=== PATIENT | female | born 1980 | race Caucasian/White ===

== ENCOUNTER 2017-03-31 09:35 | Inpatient (IN) | payer OTHER ==
[2017-03-31] MEDS ORDERED: DEXTROSE 5%-LACTATED RINGERS 1,000 ML IV SCH ×2 (09:45→15:15)
[2017-03-31 11:04] VITALS: BMI 42.0
[2017-03-31 12:17] LABS: BASOPHIL 0.4 % (0-2.0); EOSINOPHIL 1.2 % (0-4.5); MCH 28.4 pg (25.7-33.7); MCHC 33.4 g/dl (32.0-36.0); MEAN CELL VOLUME 84.9 fl (80-96); MEAN PLT VOLUME 9.2 fl (7.5-11.1); NEUTROPHILS 71.3 % (42.8-82.8); PLATELET COUNT 182 K/MM3 (134-434); WHITE BLOOD COUNT 8.6 K/mm3 (4.0-10.0)
[2017-03-31 12:35] LABS: CALCIUM 8.5 mg/dL (8.5-10.1); COCKROFT - GAULT 163.183; CREATININE 0.8 mg/dL (0.55-1.02)
[2017-03-31 12:36] LABS: INR 0.96 (0.82-1.09); PROTHROMBIN TIME (PATIENT) 10.5 SEC (9.98-11.88)
[2017-03-31] MEDS ORDERED: DINOPROSTONE 10 MG VAGINAL SUPPOSITORY VG ONE (15:00)
--- NOTE | 2017-03-31 15:10 | HP ---
Past Medical History - Admission Chief Complaint: Suspicion of Macrosomia History of Present Illness: 36 yo @ 39 weeks gestation, with suspicion of Macrosomia admitted for induction of labor. History Source: Patient Limitations to Obtaining History: No Limitations - Past Medical History ...: 4 ...Para: 2 ...Term: 2 ...: 0 ...Spon : 1 ...Induced : 0 ...Multiple Gestation: 0 ...EDC by [facility]: 04/07/17 - Past Surgical History Past Surgical History: Yes: None Hx Myomectomy: No Hx Transabdominal Cerclage: No - Smoking History Smoking history: Never smoked Have you smoked in the past 12 months: No - Alcohol/Substance Use Hx Alcohol Use: No - Social History Usual Living Arrangement: Yes: With Spouse History of Recent Travel: No Home Medications - Allergies Allergies/Adverse Reactions: Allergies Allergy/AdvReac Type Severity Reaction Status Date / Time No Known Drug Allergies Allergy Verified 03/31/17 11:08 RED BEANS Allergy Severe Hives Uncoded 03/31/17 11:08 RED MEAT Allergy Severe Hives Uncoded 03/31/17 11:08 - Home Medications Home Medications: Ambulatory Orders Pnv with Ca,No.72/Iron/FA [ Plus Tablet] 1 each PO DAILY 03/31/17 Family Disease History - Family Disease History Family History: Unremarkable Review of Systems - Review of Systems Constitutional: reports: No Symptoms Eyes: reports: No Symptoms HENT: reports: No Symptoms Neck: reports: No Symptoms Cardiovascular: reports: No Symptoms Respiratory: reports: No Symptoms Gastrointestinal: reports: No Symptoms Genitourinary: reports: No Symptoms Breasts: reports: No Symptoms Reported Musculoskeletal: reports: No Symptoms Integumentary: reports: No Symptoms Neurological: reports: No Symptoms Endocrine: reports: No Symptoms Hematology/Lymphatic: reports: No Symptoms Psychiatric: reports: No Symptoms Pain Intensity: 0 Physical Exam - Maternity Vital Signs: Vital Signs Temperature 97.8 F 03/31/17 14:00 Pulse Rate 97 H 03/31/17 14:00 Respiratory Rate 18 03/31/17 14:00 Blood Pressure 123/61 03/31/17 14:00 O2 Sat by Pulse Oximetry (%) Constitutional: Yes: Well Nourished Eyes: Yes: Conjunctiva Clear HENT: Yes: Atraumatic Neck: Yes: Supple, Trachea Midline Cardiovascular: Yes: Regular Rate and Rhythm Lungs: Clear to auscultation - Abdominal Exam/OB Number of Fetuses: Single Presentation: Vertex Intensity: Mild - Vaginal Exam/OB Dilatation (cm): 0 Effacement (%): 50 Station: -3 - Physical Exam ...Motor Strength: WNL Psychiatric: Yes: Alert, Oriented - Labs Lab Results: CBC, BMP 03/31/17 11:45 03/31/17 11:45 Problem List - Problems (1) Macrosomia affecting management of mother, antepartum Code(s): O36.60X0 - MATERNAL CARE FOR EXCESS GROWTH, UNSP TRIMESTER, UNSP Assessment/Plan IUP @ 39 weeks Suspicion of macrosomia Cervidil induction Re-evaluate in 12 hrs or before if indicated
[2017-03-31] MEDS ORDERED: TUBERCULIN PPD 5 TU/0.1ML SYRINGE (IN PATIENT USE ONLY) ID ONE (16:00)
[2017-03-31] MEDS ORDERED: BUTORPHANOL TARTRATE 1 MG/ML VIAL IVPB ONE ×2 (19:30→22:15)
[2017-03-31] MEDS ORDERED: AMPICILLIN - 100 ML IVPB ONE (19:30)
[2017-03-31] MEDS: D5W-LR W/ 20 UNITS OXYTOCIN 1,000 ML IV SCH (23:03)
[2017-03-31] MEDS ORDERED: BENZOCAINE 28 GM HEMORRHOIDAL OINTMENT TP PRN (23:15)
[2017-03-31] MEDS ORDERED: WITCH HAZEL 50% (TUCKS) 40 PAD/JAR PAD TP PRN (23:15)
[2017-03-31] MEDS ORDERED: BENZOCAINE 20% 57 GM BOTTLE TP PRN (23:15)
[2017-03-31] MEDS ORDERED: METHYLERGONOVINE MALEATE 0.2 MG/1 ML AMP IM PRN (23:15)
[2017-03-31] MEDS ORDERED: BISACODYL 10 MG SUPP.RECT RC PRN (23:15)
--- NOTE | 2017-03-31 23:19 | PN ---
Delivery - Delivery Vaginal Delivery: Spontaneous Type of Anesthesia: Local Episiotomy/Laceration: 1st degree EBL (cc): 250 Delivery, Single - Feeding Plan Initial Plan: Exclusive throughout hospitalization Remarks - Remarks Remarks: Normal spontaneous vaginal delivery of a live girl over first degree laceration. Nose / Oropharynx suctioned @ perineum. Cord clamped and cut. Placenta expelled spontaneously intact. Laceration repaired with 2.0 Chromic.
[2017-03-31] MEDS ORDERED: AMPICILLIN - 100 ML IVPB SCH (23:30)
[2017-04-01] MEDS: D5W-LR W/ 20 UNITS OXYTOCIN 1,000 ML IV SCH (00:22)
[2017-04-01] MEDS: ACETAMINOPHEN 325 MG TABLET (FP) PO PRN ×3 (01:00→20:30)
[2017-04-01] MEDS: IBUPROFEN 600 MG TABLET (FP) PO PRN ×3 (01:00→20:31)
[2017-04-01 07:34] LABS: BASOPHIL 0.1 % (0-2.0); MCH 28.1 pg (25.7-33.7); MCHC 33.2 g/dl (32.0-36.0); MEAN CELL VOLUME 84.7 fl (80-96); MEAN PLT VOLUME 9.2 fl (7.5-11.1); NEUTROPHILS 84.1 % (42.8-82.8); PLATELET COUNT 187 K/MM3 (134-434); RDW 15.1 % (11.6-15.6); WHITE BLOOD COUNT 17.9 K/mm3 (4.0-10.0)
[2017-04-01] MEDS: FERROUS SO4 325 MG TABLET (FP) PO SCH ×3 (08:10→16:50)
[2017-04-01] MEDS: PRENATAL VITAMINS W/ FOLIC ACID TABLET (FP) PO SCH (10:30)
[2017-04-01] MEDS ORDERED: SENNOSIDES/DOCUSATE COMBO (SENNA PLUS) TABLET (UD) PO PRN (22:00)
--- NOTE | 2017-04-02 07:27 | DS ---
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: Vital Signs Temperature 97.6 F 04/01/17 21:45 Pulse Rate 90 04/01/17 21:45 Respiratory Rate 18 04/01/17 21:45 Blood Pressure 124/70 04/01/17 21:45 O2 Sat by Pulse Oximetry (%) 100 04/01/17 00:00 Constitutional: Yes: Well Nourished Eyes: Yes: Conjunctiva Clear HENT: Yes: Atraumatic Neck: Yes: Supple, Trachea Midline Cardiovascular: Yes: Regular Rate and Rhythm Respiratory: Yes: Regular, CTA Bilaterally Gastrointestinal: Yes: Normal Bowel Sounds External Genitalia: Yes: Normal Vaginal Exam: Yes: Normal Cervix: Yes: Normal ....Post : Yes: Uterus firm, Moderate lochia serosa Breast(s): Yes: WNL Neurological: Yes: Alert, Oriented ...Motor Strength: WNL Psychiatric: Yes: Alert, Oriented Labs: CBC, BMP 04/01/17 05:35 03/31/17 11:45 Delivery - Delivery Vaginal Delivery: Spontaneous Type of Anesthesia: None Episiotomy/Laceration: 1st degree EBL (cc): 250 Delivery, Single - Stages of Labor Date 1st Stage Initiatied: 03/31/17 Time 1st Stage Initiated: 19:15 Date 2nd Stage Initiated: 03/31/17 Time 2nd Stage Initiated: 22:55 Date of Delivery: 03/31/17 Time of Delivery: 23:01 Time Placenta Delivered: 23:02 - Condition of Infant Spear Fisher/Milk Deliverer Present: No Infant Gender: Female Weight: 8 lb 1 oz Position: Left, OT Total Hours ROM (Hrs/Mins): 1 hour 22 minutes - 1 Minute Total Score: 8 5 Minutes Total Score: 9 - Feeding Plan Initial Plan: Exclusive throughout hospitalization Discharge Summary Reason For Visit: INDUCTION OF LABOR Current Active Problems Macrosomia affecting management of mother, antepartum (Acute) Status post normal vaginal delivery (Acute) Procedures: Principal: Normal spontaneous vaginal delivery Hospital Course: Routine care Condition: Good - Instructions Diet, Activity, Other Instructions: Regular diet No douching, no sexual intercourse x 6 weeks Referrals: Juliane Mujica MD [Staff Physician] - Disposition: HOME - Home Medications Comprehensive Discharge Medication List: Ambulatory Orders Pnv with Ca,No.72/Iron/FA [ Plus Tablet] 1 each PO DAILY 03/31/17
[2017-04-02] MEDS: FERROUS SO4 325 MG TABLET (FP) PO SCH ×2 (08:16→11:28)
[2017-04-02] MEDS: PRENATAL VITAMINS W/ FOLIC ACID TABLET (FP) PO SCH (09:14)
[2017-04-02 10:19] VITALS: BP 136/72; PULSE 73; TEMP 97.7
[2017-04-02] MEDS: ACETAMINOPHEN 325 MG TABLET (FP) PO PRN (11:28)
[2017-04-02] MEDS: IBUPROFEN 600 MG TABLET (FP) PO PRN (11:28)
[2017-04-02] MEDS ORDERED: DIPHTH,PERTUSS(ACELL),TET 0.5 ML DISP.SYRIN IM ONE (15:39)
== END 2017-04-02 15:35 | disposition home or self-care (01) | DRG 560 ==
LOC: JLDR 09:35 → J3W 04-01 14:00
PROVIDERS: ADMIT Obstetrics & Gynecology; ATTEND Obstetrics & Gynecology
PROC: 0HQ9XZZ Repair Perineum Skin, External Approach (ICD-10-PCS; principal; 2017-03-31)
PROC: 10E0XZZ Delivery of Products of Conception, External Approach (ICD-10-PCS; 2017-03-31)
PROC: 3E0P7GC Introduction of Other Therapeutic Substance into Female Reproductive, Via Natural or Artificial Opening (ICD-10-PCS; 2017-03-31)
DX: O36.63X0 Maternal care for excessive fetal growth, third trimester, not applicable or unspecified (principal); O70.0 First degree perineal laceration during delivery; Z3A.39 39 weeks gestation of pregnancy; Z37.0 Single live birth
CPT/HCPCS: 36415; 59025; 59409; 80048; 85025; 85610; 85730; 86593; 86762; 86850; 86900; 86901; 87350; 90715